=== PATIENT | female | born 1995 | race Caucasian/White ===

== ENCOUNTER 2024-02-28 10:56 | Emergency (ER) | payer OTHER, SELFPAY ==
[2024-02-28 11:03] VITALS: BP 135/94; PULSE 86; RESP 16; TEMP 36.7; O2SAT 99; BMI 50.1
[2024-02-28 12:32] LABS: Basophils % 0.5 %; Eosinophils # 0.2 10^3/uL (0.0-0.8); Eosinophils % 2.3 %; Lymphocytes # 3.1 10^3/uL (0.8-4.8); Lymphocytes % 38.1 %; Mean Corpuscular HGB Conc 31.3 g/dL (30-55); Mean Corpuscular Hemoglobin 28.6 pg (27-33); Mean Corpuscular Volume 91.5 fl (85-98); Mean Platelet Volume 11.9 fL (7.4-10.4); Monocytes # 0.5 10^3/uL (0.2-0.9); Monocytes % 5.6 %; Neutrophils # 4.35 10^3/uL (1.8-7.7); Neutrophils % 53.3 %; Nucleated Red Blood Cells % 0 %; Platelet Count 234 10^3/cmm (157-399); Red Blood Count 4.37 10^6/uL (3.85-5.65); Red Cell Distribution Width 14.3 % (12.1-15.1); White Blood Count 8.17 10^3/uL (3.29-11.43)
[2024-02-28 12:53] LABS: Alanine Aminotransferase 17 U/L (0-33); Alkaline Phosphatase 117 U/L (35-105); Anion Gap 13.9 (5-19); Aspartate Amino Transferase 18 U/L (0-32); Blood Urea Nitrogen 10 mg/dL (6-20); Calcium 8.7 mg/dL (8.5-10.5); Carbon Dioxide 24 mmol/L (22-29); Chloride 108 mmol/L (98-107); Creatinine Clr Calc Pharmacy 153.5827; Globulin 2.8 g/dL (1.3-4.6); Glomerular Filtration Rate 98.3 mL/min (90-130); Glucose 89 mg/dL (65-115); Lipase 30 U/L (13-60); Osmolality Calculated 293 mOsm/kg (285-295); Potassium 3.9 mmol/L (3.5-5.1); Sodium 142 mmol/L (136-145); Total Bilirubin 0.4 mg/dL (0.15-1.2); Total Protein 6.8 g/dL (6.6-8.7)
== END 2024-02-28 12:30 | disposition left against medical advice (07) ==
PROVIDERS: Emergency Medicine; Emergency Provider Family Medicine; PCP Nurse Practitioner Family
DX: Z53.21 Procedure and treatment not carried out due to patient leaving prior to being seen by health care provider (principal)
CPT/HCPCS: 36415; 80053; 83690; 85025

== ENCOUNTER 2024-02-28 14:18 | Emergency (ER) | payer MEDICAID, SELFPAY ==
[2024-02-28 14:50] VITALS: BP 142/82; PULSE 82; RESP 16; TEMP 36.8; O2SAT 98; BMI 50.1
--- NOTE | 2024-02-28 15:18 | CTR_ITS ---
PROCEDURE INFORMATION: Exam: CT Abdomen And Pelvis Without Contrast Exam date and time: 02/28/2024 3:37 PM Age: 28 years old Clinical indication: Abdominal pain; Flank; Left; Additional info: Llq pain radiating to back TECHNIQUE: Imaging protocol: Computed tomography of the abdomen and pelvis without contrast. Radiation optimization: All CT scans at this facility use at least one of these dose optimization techniques: automated exposure control; mA and/or kV adjustment per patient size (includes targeted exams where dose is matched to clinical indication); or iterative reconstruction. COMPARISON: No relevant prior studies available. RADIATION DOSE METRICS: Total DLP (mGy-cm): 1186 FINDINGS: Lungs: Lung bases are clear. Liver: The liver is mildly enlarged. There is no focal liver abnormality. No sign of hepatic steatosis. Gallbladder and biliary ducts: The gallbladder is normal. There is no biliary dilation. Pancreas: The pancreas is unremarkable. Spleen: The spleen is unremarkable. Adrenal glands: The adrenal glands are unremarkable. Kidneys and ureters: The right kidney and ureter are unremarkable. There is a 2 mm nonobstructive stone in left lower pole collecting system. There is no hydronephrosis or ureteral dilation on the left. Stomach and bowel: The stomach is nondistended, limiting assessment of wall thickness. The small bowel is nondilated. The colon is unremarkable. Appendix: The appendix is normal. Intraperitoneal space: There is no free air or significant intraperitoneal free fluid. Vasculature: The aorta is unremarkable. There is no aneurysm. Lymph nodes: There is no lymphadenopathy in the retroperitoneum, mesentery, pelvis or inguinal regions. Urinary bladder: The urinary bladder is nondistended, limiting assessment of wall thickness. No stones are seen in the bladder. Reproductive: The uterus is unremarkable. There is no adnexal mass or large cyst. Bones/joints: Bones are unremarkable. Soft tissues: The abdominal wall is intact. CT/CT kidney stone [id number] IMPRESSION: 1. No acute findings. 2. No obstructive uropathy. 3. 2 mm nonobstructive stone in the left kidney. 4. Mild hepatomegaly.
--- NOTE | 2024-02-28 15:19 | ED_ITS ---
HPI - Abdominal Pain 2 General: Chief Complaint: Abdominal Pain Stated Complaint: sharp abdominal pain Time Seen by Provider: 02/28/24 15:04 Source: patient Mode of arrival: ambulatory Limitations: no limitations History of Present Illness: Patient is a 28-year-old female presenting to the emergency department complaining of left lower quadrant pain constant for the past 3 to 4 days. States it radiates around to the back. Denies history of kidney stones. Denies any urinary symptoms. She is not nauseous or vomiting, no diarrhea or constipation, no chest pain or shortness of breath, no fevers. States the pain is currently an 8/10 and has been worsening. She has been taking ibuprofen and Tylenol for the pain, states this only relieves it minimally and for short period of time before it comes back. MD elicited complaint: abdominal pain Pertinent past history: none Onset (ago): day(s) Pain Consistency: constant Location: LLQ Severity: severe Pain scale (0-10): 8 Quality: sharp Radiation: back Associated Symptoms: Denies bloating, change in stool character, chills, constipation, diarrhea, dysuria, fever(s), hematochezia, nausea and vomiting Treatments prior to arrival: NSAIDs and other (Acetaminophen) Related Data Previous Rx's Medication Instructions Recorded cefdinir 300 mg capsule 300 mg PO BID 10 days #20 caps 02/28/24 Allergies Allergy/AdvReac Type Severity Reaction Status Date / Time No Known Allergies Allergy Verified 02/28/24 14:54 Review of Systems 2 General: Reports: 10 or more systems reviewed and unremarkable except in HPI and below Const: Denies: fever(s), chills, change in appetite, change in weight or diaphoresis ENMT: Denies: throat pain or hoarseness Card: Denies: chest pain, palpitations or lightheadedness Resp: Denies: dyspnea, productive cough or wheezing GI: Reports: abdominal pain; Denies: nausea, vomiting, diarrhea, constipation, bloating, change in stool character or hematochezia : Reports: flank pain; Denies: difficulty voiding, dysuria, urinary frequency or urinary urgency Musc: Reports: back pain; Denies: neck pain Skin/Breast: Denies: rash or new lesions Neuro: Denies: headache(s) or dizziness Physical Exam 2 Const: COMMON NORMALS: patient oriented x3, no limitations, healthy appearing, alert and well nourished GENERAL APPEARANCE: cooperative and comfortable N UTRITIONAL APPEARANCE: obese morbidly obese ORIENTATION/CONSCIOUSNESS: Yes awake OTHER: Appears uncomfortable in ER bed HENMT: COMMON NORMALS: normocephalic, atraumatic, hearing grossly normal bilaterally, external ears normal, Normal external nose present, Normal nasal mucous membranes and turbinates present and moist oral mucous membranes HEAD & SCALP: normocephalic and atraumatic NOSE: Normal external nose present and Normal nasal mucous membranes and turbinates present EXTERNAL EAR: Yes external ears normal Eye: COMMON NORMALS: EOMs intact bilaterally and conjunctivae normal C ONJUNCTIVA: Yes conjunctivae normal Neck/C-Spine: COMMON NORMALS: full ROM, supple, no meningeal signs and no JVD Resp: COMMON NORMALS: normal respiratory effort, No retractions, No use of accessory muscles and clear to auscultation bilaterally AUSCULTATION: clear to auscultation bilaterally, no crackles, no rales, no rhonchi and no wheezes Cardio: COMMON NORMALS: no JVD, regular rate, regular rhythm, S1 normal heart sound present, S2 normal heart sound present, No gallops present (Cardio), No clicks present (Cardio), No murmurs present (Cardio), No rub (Cardio) and Peripheral pulses 2+ throughout RATE: regular rate RHYTHM: regular rhythm HEART SOUNDS: S1 normal heart sound present and S2 normal heart sound present PERIPHERAL PULSES: Peripheral pulses 2+ throughout GI: COMMON NORMALS: Normal to inspection, nondistended, normoactive bowel sounds present, Soft to palpation, No hepatosplenomegaly present and no masses INSPECTION: Yes central obesity AUSCULTATION: Yes normoactive bowel sounds PALPATION: Yes Soft to palpation, Yes Tenderness to palpation present (GI) Details: LLQ, No Guarding due to palpation present (GI), No Rigid due to palpation and Yes No hepatosplenomegaly present RECTAL EXAM: deferred : COMMON NORMALS: Yes no CVA tenderness BLADDER/KIDNEY EXAM: Yes no CVA tenderness Back/Pelvis: COMMON NORMALS: no CVA tenderness Extremity: COMMON NORMALS: normal to inspection and full ROM Neuro: COMMON NORMALS: patient oriented x3, moves all extremities, no focal motor deficits and no sensory deficits noted SENSORIUM/ORIENTATION: Yes alert MENINGEAL SIGNS: Yes no meningeal signs Psych: COMMON NORMALS: mental status grossly normal, cooperative and speech normal SPEECH: Yes normal speech Skin: COMMON NORMALS: no rashes or lesions noted GENERAL SKIN EXAM: no rashes or lesions noted Course 2 Vital Signs: Vital signs: Vital Signs Temperature 98.3 F 02/28/24 14:50 Pulse Rate 82 02/28/24 14:50 Respiratory Rate 16 02/28/24 14:50 Blood Pressure 142/82 02/28/24 14:50 Pulse Oximetry 98 02/28/24 14:50 Oxygen Delivery Me thod Room Air 02/28/24 14:50 MDM - Abdominal Pain Medical Decision Making Patient presented with left lower quadrant pain expanding to the back over the past few days, has been constant. Vitals normal on arrival. Did have some left lower quadrant tenderness to palpation on exam, negative CVA tenderness. No history of kidney stones was reported. Her blood work was unremarkable, but urinalysis did reveal signs of a urinary tract infection with 4+ bacteria and positive nitrate. In addition to this, her abdomen pelvis CT did not demonstrate any acute findings or obstructive uropathy. Pain likely coming from an acute cystitis, we will treat with antibiotics. She is encouraged to increase her fluid intake and follow-up with primary care routinely. She is also given return precautions, to which she understands at this time. Lab Data 02/28/24 15:32 02/28/24 15:32 Labs/Radiology: Radiology Impressions Abdomen/Pelvis CT 02/28/24 15:18 IMPRESSION: 1. No acute findings. 2. No obstructive uropathy. 3. 2 mm nonobstructive stone in the left kidney. 4. Mild hepatomegaly. Laboratory Results WBC 8.81 10^3/uL (3.29-11.43) 02/28/24 15:32 RBC 4.27 10^6/uL (3.85-5.65) 02/28/24 15:32 Hgb 12.30 g/dL (11.27-16.99) 02/28/24 15:32 Hct 38.4 % (36-47) 02/28/24 15:32 MCV 89.9 fl (85-98) 02/28/24 15:32 MCH 28.8 pg (27-33) 02/28/24 15:32 MCHC 32.0 g/dL (30-55) 02/28/24 15:32 RDW 14.4 % (12.1-15.1) 02/28/24 15:32 Plt Count 235 10^3/cmm (157-399) 02/28/24 15:32 MPV 11.7 fL (7.4-10.4) H 02/28/24 15:32 Neut % (Auto) 55.4 % 02/28/24 15:32 Lymph % (Auto) 36.7 % 02/28/24 15:32 [place] % (Auto) 5.4 % 02/28/24 15:32 Eos % (Auto) 1.7 % 02/28/24 15:32 Baso % (Auto) 0.6 % 02/28/24: Neut # (Auto) 4.88 10^3/uL (1.8-7.7) 02/28/24 15:32 Lymph # (Auto) 3.2 10^3/uL (0.8-4.8) 02/28/24 15:32 [place] # (Auto) 0.5 10^3/uL (0.2-0.9) 02/28/24 15:32 Eos # (Auto) 0.2 10^3/uL (0.0-0.8) 02/28/24 15:32 Baso # (Auto) 0.1 10^3/uL (0.0-0.1) 02/28/24 15:32 Nucleated RBC % (auto) 0 % 02/28/24 15:32 Nucleated RBCs # 0.0 /100WBC 02/28/24 15:32 Sodium 140 mmol/L (136-145) 02/28/24 15:32 Potassium 3.7 mmol/L (3.5-5.1) 02/28/24 15:32 Chloride 107 mmol/L (98-107) 02/28/24 15:32 Carbon Dioxide 25 mmol/L (22-29) 02/28/24 15:32 Anion Gap 11.7 (5-19) 02/28/24 15:32 BUN 10 mg/dL (6-20) 02/28/24 15:32 Creatinine 0.7 mg/dL (0.5-0.9) 02/28/24 15:32 GFR Calculation 98.3 mL/min (90-130) 02/28/24 15:32 Glucose 89 mg/dL (65-115) 02/28/24 15:32 Calculated Osmolality 289 mOsm/kg (285-295) 02/28/24 15:32 Calcium 8.8 mg/dL (8.5-10.5) 02/28/24 15:32 Total Bilirubin 0.4 mg/dL (0.15-1.2) 02/28/24 15:32 AST 15 U/L (0-32) 02/28/24 15:32 ALT 18 U/L (0-33) 02/28/24 15:32 Alkaline Phosphatase 110 U/L (35-105) H 02/28/24 15:32 Total Protein 6.8 g/dL (6.6-8.7) 02/28/24 15:32 Albumin 4.0 g/dL (3.5-5.2) 02/28/24 15:32 Globulin 2.8 g/dL (1.3-4.6) 02/28/24 15:32 Lipase 28 U/L (13-60) 02/28/24 15:32 HCG, Qual Negative (Negative) 02/28/24 12:17 Urine Color Yellow (Yellow) 02/28/24 15:12 Urine Appearance Clear (CLEAR) 02/28/24 15:12 Urine pH 5.5 (5-7) 02/28/24 15:12 Ur Specific Bruce 1.017 (1.005-1.030) 02/28/24 15:12 Urine Protein Negative (Negative) 02/28/24 15:12 Urine Glucose (UA) Negative (Normal) 02/28/24 15:12 Urine Ketones 1+ (Negative) H 02/28/24 15:12 Urine Blood 2+ (Negative) A 02/28/24 15:12 Urine Nitrate Positive (Negative) A 02/28/24 15:12 Urine Bilirubin Negative (Negative) 02/28/24 15:12 Urine Urobilinogen 1.0 mg/dL (Negative) 02/28/24 15:12 Ur Leukocyte Esterase Negative (Negative) 02/28/24 15:12 Urine RBC 3-5 /hpf (0-2) 02/28/24 15:12 Urine WBC 0-5 /hpf (0-5) 02/28/24 15:12 Ur Squamous Epith Cells 6-10 /hpf (0-5) 02/28/24 15:12 Amorphous Sediment Not Reportable 02/28/24 15:12 Urine Bacteria 4+ /hpf (NONE) H 02/28/24 15:12 Hyaline Casts 0.40 /lpf 02/28/24 15:12 All radiology interpretation(s) finalized by discharge Discharge Plan Discharge Patient Disposition: Home Clinical Impression: Acute cystitis Qualifiers: Hematuria presence: without hematuria Qualified Code(s): N30.00 - Acute cystitis without hematuria Condition: Stable Prescriptions: New cefdinir 300 mg capsule 300 mg PO BID 10 Days Qty: 20 0RF Discharge Orders: Discharge ED (Routine); Ordered 02/28/24 Ordered By: Uvaldo Sarmiento Referrals: Radha Sauceda FNP [Primary Care Provider] - Patient Instructions: Urinary Tract Infection in Women (ED) Activity Restrictions/Additional Instructions: Take antibiotics as prescribed. Drink plenty of fluids. Alternate Tylenol and ibuprofen for any pain. Follow-up with primary care and return with any new or worsening. Coding Level of Care Code ED Jetting Machine Operator for Katherine Balderas
[2024-02-28 15:26] LABS: Bilirubin Urine Negative (Negative); Blood Urine 2+ (Negative); Glucose Urine UA Negative (Normal); Ketones Urine 1+ (Negative); Leukocyte Esterase Urine Negative (Negative); Nitrate Urine Positive (Negative); Protein Urine Negative (Negative); Specific Gravity, Urine 1.017 (1.005-1.030); Urine Appearance Clear (CLEAR); Urine Color Yellow (Yellow); pH Urine 5.5 (5-7)
[2024-02-28 15:31] LABS: Add Urine Microscopic? YES; Bacteria Urine 4+ /hpf; WBC Urine 0-5 /hpf (0-5)
[2024-02-28 15:34] LABS: HCG, Serum Qual Negative (Negative)
[2024-02-28 15:44] LABS: Basophils # 0.1 10^3/uL (0.0-0.1); Basophils % 0.6 %; Eosinophils # 0.2 10^3/uL (0.0-0.8); Eosinophils % 1.7 %; Hematocrit 38.4 % (36-47); Lymphocytes # 3.2 10^3/uL (0.8-4.8); Lymphocytes % 36.7 %; Mean Corpuscular Hemoglobin 28.8 pg (27-33); Mean Corpuscular Volume 89.9 fl (85-98); Mean Platelet Volume 11.7 fL (7.4-10.4); Monocytes # 0.5 10^3/uL (0.2-0.9); Monocytes % 5.4 %; Neutrophils # 4.88 10^3/uL (1.8-7.7); Neutrophils % 55.4 %; Nucleated Red Blood Cells % 0 %; Platelet Count 235 10^3/cmm (157-399); Red Blood Count 4.27 10^6/uL (3.85-5.65); Red Cell Distribution Width 14.4 % (12.1-15.1); White Blood Count 8.81 10^3/uL (3.29-11.43)
[2024-02-28] MEDS: ketorolac 60 mg/2 mL INJ IM (15:59)
[2024-02-28 16:01] LABS: Add Urine Culture? Yes
[2024-02-28 16:03] LABS: Alanine Aminotransferase 18 U/L (0-33); Alkaline Phosphatase 110 U/L (35-105); Anion Gap 11.7 (5-19); Aspartate Amino Transferase 15 U/L (0-32); Blood Urea Nitrogen 10 mg/dL (6-20); Calcium 8.8 mg/dL (8.5-10.5); Carbon Dioxide 25 mmol/L (22-29); Chloride 107 mmol/L (98-107); Creatinine Clr Calc Pharmacy 153.5827; Globulin 2.8 g/dL (1.3-4.6); Glomerular Filtration Rate 98.3 mL/min (90-130); Glucose 89 mg/dL (65-115); Lipase 28 U/L (13-60); Osmolality Calculated 289 mOsm/kg (285-295); Potassium 3.7 mmol/L (3.5-5.1); Sodium 140 mmol/L (136-145); Total Bilirubin 0.4 mg/dL (0.15-1.2); Total Protein 6.8 g/dL (6.6-8.7)
[2024-02-28 17:02] VITALS: BP 138/76; PULSE 75; O2SAT 99
== END 2024-02-28 17:03 | disposition home or self-care (01) ==
PROVIDERS: Emergency Medicine; Emergency Provider Physician Assistant; PCP Nurse Practitioner Family
DX: N30.00 Acute cystitis without hematuria (principal)
CPT/HCPCS: 36415; 74176; 80053; 81001; 83690; 84703; 85025; 87077; 87086; 87186; 96372; 99284; J1885